=== PATIENT | female | born 1995 | race Two or more races ===

== ENCOUNTER → 2025-01-25 | Outpatient (CLI) | payer OTHER, SELFPAY ==
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
== END | disposition home or self-care (01) ==
LOC: SMRI 06:38
PROVIDERS: Referring Provider Orthopaedic Surgery; Visit Provider Orthopaedic Surgery
DX: M25.531 Pain in right wrist (principal); S69.81XS Other specified injuries of right wrist, hand and finger(s), sequela; V99.XXXS Unspecified transport accident, sequela
CPT/HCPCS: 73221